=== PATIENT | male | born 1945 | race Two or more races ===

== ENCOUNTER 2023-04-10 10:55 | Emergency (ER) | payer OTHER ==
[~2023-04-10] VITALS: Ht 177.8 cm; Wt 99.8 kg
[2023-04-10] MEDS ORDERED: KETOROLAC TROMETHAMINE INJ 60 MG/2 ML VIAL IM ONE (12:30)
[2023-04-10] MEDS ORDERED: ACETAMINOPHEN ES 500 MG TABLET PO ONE (12:30)
[2023-04-10] MEDS ORDERED: KETOROLAC TROMETHAMINE INJ 30 MG/ML VIAL ONE (12:35)
[2023-04-10] MEDS ORDERED: ACETAMINOPHEN ES 500 MG TABLET ONE (12:36)
[2023-04-10] MEDS ORDERED: NALO4SPR BNOSTRILS (13:10)
[2023-04-10 13:40] VITALS: BP 135/75; TEMP 98; O2SAT 99
== END 2023-04-10 13:55 | disposition home or self-care (01) ==
LOC: ER 10:55
DX: T40.601A Poisoning by unspecified narcotics, accidental (unintentional), initial encounter (principal); I10 Essential (primary) hypertension; E11.9 Type 2 diabetes mellitus without complications; Z96.651 Presence of right artificial knee joint; Z88.8 Allergy status to other drugs, medicaments and biological substances; Y92.89 Other specified places as the place of occurrence of the external cause
CPT/HCPCS: 99283; 96372; 82962; J1885